=== PATIENT | male | born 1940 | race Caucasian/White ===

== ENCOUNTER 2017-01-04 11:33 | Observation (INO) | payer MEDICARE ==
[~2017-01-04] VITALS: Ht 188 cm; Wt 104.0 kg
[2017-01-04] VITALS (8 sets, daily range): BP systolic 112–129; BP diastolic 65–94; PULSE 71–79; RESP 18–22; O2SAT 93–98
[~2017-01-04 11:33] MED LIST: ASPI-973 PO; CHOL100043 PO; FUR20 PO; GABA600T2 PO; GLPZ5T PO; LEVO50TA6 PO; LIP40 PO; LISI-609 PO; METF1000 PO; METO25TA6 PO; NORT25CA PO; OXYC5TAB72 PO; TAMS0.4C98 PO; WARF10TA4 PO; WARF7.5T4 PO
--- NOTE | 2017-01-04 11:42 | ED.REPORT ---
HPI-Chest Pain 40 and Over Date of Service January 04, 2017 ED Provider: Dr. Cuba Pt is a 76 year old male with a hx of DMII, HTN, hyperlipidemia, cardiac disease , afib, previous ND and prostate cancer on Warfarin presenting to the ED complaining of malaise onset at 0400 when he woke up this morning. He reports that he missed his evening medications last night (Aspirin, Atorvastatin, Metoprolol, and Lantus shot), and complains of SOB, slight left sided chest tightness (which he describes as a twinge), anxiety, and indigestion today. Denies cough or fever. He reports that he took his morning medications today which include Metoprolol but he has not taken Aspirin. Nursing Notes Stated Complaint: HEART PROBLEMS Chief Complaint: Chest Pain Nursing Notes Reviewed: Yes Allergies: Coded Allergies: No Known Allergies (Verified , 01/04/17) Scheduled Aspirin (Aspirin) 81 Mg Tablet 81 MG PO HS Atorvastatin (Lipitor) 40 Mg Tablet 40 MG PO HS Cholecalciferol (Vitamin D3) (Vitamin D) 1,000 Unit Tablet 2,000 UNIT PO DAILY Furosemide (Furosemide) 20 Mg Tab 20 MG PO BID Gabapentin (Gabapentin) 600 Mg Tablet 1,200 MG PO TID Glimepiride (Glimepiride) 2 Mg Tablet 2 MG PO DAILYAC Insulin Glargine (Lantus U100 Solostar Insulin Pen) 100 Unit/1 Ml Insuln.pen 1 UNIT SUBQ HS Levothyroxine (Levothyroxine) 50 Mcg Tablet 50 MCG PO DAILY Lisinopril (Zestril) 5 Mg Tablet 10 MG PO DAILY Metformin (Glucophage) 1,000 Mg Tablet 1,000 MG PO BID Metoprolol Tartrate (Metoprolol Tartrate) 25 Mg Tablet 25 MG PO BID Nortriptyline (Nortriptyline) 25 Mg Capsule 25 MG PO HS Warfarin Sodium (Warfarin Sodium) 7.5 Mg Tablet 7.5 MG PO ,,,Fr,Sa,Gill Warfarin Sodium (Warfarin Sodium) 10 Mg Tablet 10 MG PO Mondays Scheduled PRN oxyCODONE (oxyCODONE) 5 Mg Tablet 5 MG PO Q4H PRN PRN For Pain 5-10 mg General Time Seen by MD: 11:41 Chief Complaint Chest pain Hx Obtained From: Patient Arrived By: Walk-in Sudden in Onset?: No Onset Occurred: 5 - 8 hours ago Symptom Duration: Since onset Location: : Chest left Quality: Painful Severity: Current: Mild Severity: Maximum: Mild Recent Healthcare: No recent doctor visit, No recent hospitalization Similar Sx Previous: No Past Medical History Past Medical History 1. 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 2. Hyperlipidemia on Zocor. 3. Hypertension. 4. Cervical lumbar surgeries in the past. 5. Prostate cancer with implanted seeds at times prior. 6. History of nephrolithiasis. 7. Cardiac disease s/p cardiac catheterization 8. Atrial fibrillation and ventricular tachycardia s/p cardioversion. 9. ND. Past Surgical History Cardiac catheterization carpal tunnel surgery Reports: Back/neck surgery Smoking History Former Smoker Social History Alcohol Use: "Social" Drug Use: Denies drug use Other Social History: Ambulatory Status Independent Review of Systems Constitutional: Reports: Malaise, Denies: Fever Respiratory: Reports: Shortness of breath, Denies: Non-productive cough Cardiovascular: Reports: Chest pain GI: Reports: Abdominal pain Complete sys rev & neg: except as marked. Physical Exam Initial Vital Signs Vital Signs (First) Date Time Temp Pulse Resp B/P Pulse Ox O2 Delivery O2 Flow Rate FiO2 01/04/17 11:35 36.2 79 18 129/78 98 Room Air Initial VS: Reviewed Head / Eyes: Atraumatic, Normocephalic, PERRL ENT: Conjunctiva normal Neck: Supple Extremities: No swelling Skin: Warm, Dry, No cyanosis Neurologic: Alert, Oriented, Nonfocal Psychiatric: Mood/affect normal, Behavior normal, Normal thought content General/Constitutional: Awake, Alert, Well appearing Respiratory / Chest: Breath sounds NL, Breath sounds = bilat, No respiratory distress, No rales, No rhonchi, No wheezing, No stridor, No chest tenderness Cardiovascular: Heart rate NL, Regular rhythm, Heart sounds NL, No gallop, No murmurs, No rubs Interpretation & Diagnostics Lab Results Interpretation Result Diagram: 01/04/17 1145 01/04/17 1145 Test 01/04/17 11:45 01/04/17 12:45 White Blood Count 6.8th/mm3 (3.8-10.1) Red Blood Count 3.61mil/mm3 (4.40-5.80) Hemoglobin 11.8g/dL (13.8-17.2) Hematocrit 35.5% (41.0-50.0) Mean Corpuscular Volume 98.3fL (81-100) Mean Corpuscular Hemoglobin 32.7pg (27.0-35.0) Mean Corpuscular Hemoglobin Concent 33.2% (32.0-37.0) Red Cell Distribution Width 14.1% (12.3-15.4) Platelet Count 136bil/L (150-400) Neutrophils (%) (Auto) 71.0% (40-74) Lymphocytes (%) (Auto) 20.1% (14-46) Monocytes (%) (Auto) 7.4% (4-12) Eosinophils (%) (Auto) 1.0% (0-5) Basophils (%) (Auto) 0.4% (0-3) Prothrombin Time 22.3sec (8.1-12.5) Prothromb Time International Ratio 2.05ratio Sodium Level 141mEq/L (134-144) Potassium Level 4.6mEq/L (3.5-5.2) Chloride Level 104mEq/L (97-108) Carbon Dioxide Level 21mmol/L (18-29) Blood Urea Nitrogen 32mg/dL (8-27) Creatinine 1.20mg/dL (0.76-1.27) Estimat Glomerular Filtration Rate 63mL/min (>59) Glucose Level 225mg/dL (60-99) Calcium Level 9.6mg/dL (8.5-10.1) Magnesium Level 2.0mg/dL (1.6-2.6) Total Bilirubin 0.7mg/dL (0.0-1.2) Aspartate Amino Transf (AST/SGOT) 20U/L (0-50) Alanine Aminotransferase (ALT/SGPT) 14U/L (0-44) Alkaline Phosphatase 72U/L (25-160) Total Protein 7.2g/dL (6.4-8.4) Albumin 4.1g/dL (3.4-5.0) Hold [place] Top Tube Received (Received) Urine Color Straw (YELLOW) Urine Appearance Clear (CLEAR,HAZY) Urine pH 5.0 (5.0-8.0) Urine Specific [place] <1.005 (1.003-1.035) Urine Protein Negativemg/dL (NEG,TRACE) Urine Glucose (UA) Negativemg/dL (NEGATIVE) Urine Ketones Negativemg/dL (NEGATIVE) Urine Occult Blood Negative (NEGATIVE) Urine Nitrite Negative (NEGATIVE) Urine Bilirubin Negative (NEGATIVE) Urine Urobilinogen Normalmg/dL (NORMAL) Urine Leukocyte Esterase Negative (NEGATIVE) Urine RBC 0-2/hpf (0-2) Urine WBC 0-5/hpf (0-5) Urine Epithelial Cells None/hpf (NONE-MOD) Urine Crystals None seen (NONE SEEN) Urine Bacteria None/hpf (NONE-FEW) Urine Hyaline Casts None/lpf (NONE) Urine Granular Casts None seen (NONE SEEN) Urine Waxy Casts None seen (NONE SEEN) Urine Red Blood Cell Casts None seen (NONE SEEN) Urine White Blood Cell Casts None seen (NONE SEEN) Urine Mucus None seen (None Seen) Urine Trichomonas None seen (NONE SEEN) Urine Yeast None (NONE SEEN) Urinalysis Comment None Urine Culture Reflexed Not indicated Hold Urine Received (Received) ECG Interpretation ECG Interpretation: Paced rhythm. Time: 11:42 Normal ECG Interpretation: Normal rate (75) X-Ray Chest Interpretation Chest Xray Interpretation: IMPRESSION: No acute cardiopulmonary disease process. Dictated by: Beena Navarro MD, PhD on 01/04/2017 at 11:59 View: Portable, 1 view Interpretation / Wet Read by: Interpret - Radiologist Re-Eval/Medical Decision Med Decision/Clinical Course 76 year old with known CAD and indeterminate troponin. ECG is unreadable due to paced rhythm. Pain free after NTG, given ASA. Will admit for obs/serial troponins Time of Eval: 12:03 Patient Status: Condition improved Re-Evaluation/Progress Note: Discussed plan for chest pain workup and probable admission. Time of Eval: 13:10 Patient Status: Condition improved Re-Evaluation/Progress Note: Discussed lab results and plan for admission. Pt understands and agrees. Consultation #1: Call Returned at: 11:57 Note: [employer]: No arrhythmias. Function of pacemaker and batteries fine. Consultation #2: Referral / Consult Name: Jitendra Tran MD Consulted With: Hospitalist Call Returned at: 13:20 Inside Polisher: Will see patient, Agrees with plan, Accepts admit Counseled Regarding: Diagnosis, Lab results, Need for follow-up, When/why to return to ED Discharge & Departure Disposition: ADMITTED TO HOSPITAL Discharge Condition All VS Reviewed: Yes Condition: Improved Referrals: Albaro Stratton MD (PCP) Scribe Attestation Portions of this note were transcribed by Vee Liu. I, Dr. Cuba personally performed the history, physical exam and medical decision-making; I reviewed and confirmed the accuracy of the information in the transcribed note. Signed by : Mario Mireles, 01/04/17 at 1324. copies to: Albaro Stratton MD, Donald L MD January 04, 2017 11:42 VEE LIU January 04, 2017 11:46
--- NOTE | 2017-01-04 12:01 | DRSVH ---
PROCEDURE: X-RAY CHEST ONE VIEW, PORTABLE ([id number]) INDICATIONS: chest pain TECHNIQUE: One view of the chest was acquired. COMPARISON: [facility], CR, XR CHEST 1VW (PORTABLE), 06/29/2016, 7:49. FINDINGS: Surgical changes and devices: Status post placement cardiac pacer. Lungs and pleura: No pleural effusions or pneumothorax. Lungs are clear. Mediastinum: Mediastinal contours appear normal. Heart size is normal. Bones and chest wall: No suspicious bony lesions. Overlying soft tissues appear unremarkable. IMPRESSION: No acute cardiopulmonary disease process. Dictated by: Beena Navarro MD, PhD on 01/04/2017 at 11:59 Approved by: Beena Navarro MD, PhD on 01/04/2017 at 12:00
[2017-01-04 12:24] LABS: INR 2.05 ratio
[2017-01-04 12:27] LABS: BASOPHILS % (AUTO) 0.4 % (0-3); MONOCYTES % (AUTO) 7.4 % (4-12); Mean Corpuscular Hemoglobin 32.7 pg (27.0-35.0); Mean Corpuscular Volume 98.3 fL (81-100); Platelet Count 136 bil/L (150-400)
[2017-01-04 12:32] LABS: TROPONIN T 0.016 ug/L (0.0-0.011)
[2017-01-04] MEDS ORDERED: Nitroglycerin 2% 1 Gm Ointment TOPICAL SCH (13:15)
[2017-01-04] MEDS ORDERED: Ondansetron 2 mg/mL 2 mL Inj IVPUSH PRN ×2 (13:25→15:30)
[2017-01-04] MEDS ORDERED: Alum-Mag Hydrox-Simeth 30 mL Suspension PO PRN ×2 (13:25→15:30)
[2017-01-04 13:46] LABS: APPEARANCE,URINE CLEAR (CLEAR,HAZY); COLOR,URINE STRAW (YELLOW); OCCULT BLOOD,URINE NEGATIVE (NEGATIVE); UROBILINOGEN,URINE NORMAL (NORMAL)
[2017-01-04] MEDS ORDERED: INSU100I13 SUBQ (14:11)
[2017-01-04] MEDS ORDERED: GLIM2TAB2 PO (14:11)
[2017-01-04] MEDS ORDERED: 0.9% Sodium Chloride 1,000 ML IV SCH (15:26)
[2017-01-04] MEDS ORDERED: Polyethylene Glycol (PEG) 17 Gm Powder PO PRN (15:30)
[2017-01-04] MEDS ORDERED: Senna-Docusate 8.6-50 mg Tablet PO PRN (15:30)
[2017-01-04] MEDS ORDERED: Atropine 1 mg/10 mL (Code) Syringe IVPUSH PRN (15:30)
[2017-01-04] MEDS ORDERED: Glucose 40% Oral Gel 15 Gm Tube PO PRN (15:35)
[2017-01-04] MEDS ORDERED: Dextrose 10% 250 ML IV PRN (15:35)
[2017-01-04] MEDS: Sodium Chloride LOK Flush 10 mL Syringe IVFLUSH SCH ×2 (16:00→21:41)
[2017-01-04 16:47] LABS: TROPONIN T 0.014 ug/L (0.0-0.011)
[2017-01-04] MEDS: Heparin 5,000 Unit/mL Inj SUBQ SCH (16:54)
[2017-01-04 16:57] LABS: Creatine Kinase 131 U/L (21-232)
[2017-01-04] MEDS: Insulin LISPRO 300 Unit/3 mL Inj SUBQ SCH ×2 (17:25→21:41)
--- NOTE | 2017-01-04 17:57 | NUR ---
Transfer/Refused Coumadin Pt. was transferred from the ED to room [facility]. Pt. arrived at ~1400 with no c/o pain, SOB, or chest pain. Pt. ambulated from the ED bed to the bed in room 2001 [facility] with SBA, steady/strong gait observed. Pt. this afternoon refused his Coumadin dose scheduled of 7.5mg because he states " I took my Coumadin dose this morning prior to coming into the hospital and I will not take it this afternoon because I don't want to overdose on it". Addendum: 01/04/17 at 1802 by CHRISTINA AUGUSTINE RN Pt. on tele and Vpaced 100% per tele
--- NOTE | 2017-01-04 18:14 | PCM.HPMED ---
Subjective Date of Service January 04, 2017 Primary Provider: Admitting Physician: Jitendra Tran MD Primary Care Physician: Albaro Stratton MD Attending Physician: Jitendra Tran MD Chief Complaint: Chest pain History of Present Illness: PCP is Dr. Stratton J2Ee Architect is Dr. Galindo Mr. Alvares is a 76-year-old obese gentleman with history of CAD, pacemaker, diabetes type II, A. fib on warfarin who presents with 2 hours of chest pain/ indigestion which started today at 4 AM and was not relieved by Pepto-Bismol. Mr. Hays reports that he had a change in routine last night at which day dinner later, and he subsequently forgot to take his evening medications. He reports awakening this morning at approximately 4 AM with some indigestion/ chest discomfort on the left which did not radiate, and was not associated with nausea, sweating, lightheadedness or dizziness. He reports that he tried Pepto- Bismol, but this was insufficient to relieve his pain. He subsequently presented at the ER for further evaluation. In the ER he received a full dose aspirin and a dose of nitroglycerin. EKG demonstrated a paced rhythm and troponins were slightly positive, and therefore decision was made to admit for further observation and evaluation. Patient is admitted under observation status with expected length of stay less than 2 midnights due to severity of presenting symptoms, risk of adverse event, and complexity of treatment plan. Review of Systems: Comprehensive review of systems conducted and was negative except for the pertinent positives listed in history of present illness above. Allergies Coded Allergies: No Known Allergies (Verified , 01/04/17) Home Medications Patient reports taking the following: Baby aspirin daily 40 mg atorvastatin Vitamin D Furosemide 20 mg twice a day (patient actually reports taking 10 mg twice a day because he was up all night urinating) High-dose gabapentin 3 times a day Glimepiride 2 mg Insulin glargine (he reports taking 8 units at night, but notes that he took 8 units this morning because he missed his dose last night) 50 g levothyroxine Lisinopril 10 mg Metformin 1 g twice a day Metoprolol tartrate 25 twice a day Her trip to lean 25 at bedtime Oxycodone 5 mg every 4 hours as needed for pain Warfarin 7.5 mg on , , , S, SA, DAY Warfarin 10 mg on Mondays PMH 1. Type 2 diabetes (reports starting insulin, long-acting approximately 2 or 3 months ago) with neuropathy on gabapentin. * Reports A1c as high as 9 2. Hyperlipidemia on Zocor. 3. Hypertension. 4. Cervical and lumbar surgeries in the past.-Patient actually reports that he has a lumbar surgery upcoming over the next month or so 5. Prostate cancer with implanted seeds at times prior. 6. History of nephrolithiasis. 7. Cardiac disease s/p [place] with cardiac catheterization and report of stent 20yrs ago * status post Xience 2.5 x 28 stent deployed to the mid RCA for chronic total occlusion September 2009. 8. Atrial fibrillation and ventricular tachycardia s/p cardioversion. * Status post pacemaker placement 9. Hypothyroidism on replacement 10. Systolic congestive heart failure * Echocardiogram 06/2016 shows an EF of 35-40% * Mild MR * Pulmonary hypertension with an estimated RVSP of 48 Past Surgical History CAD s/p stent 20yrs ago carpal tunnel surgery 06/25/2016 Reports: Backx3/neckx1 surgery s/p right total hip arthroplasty Family History Father of 50 with premature atherosclerosis. History of coronary artery disease, multiple family members. Multiple siblings with [place] and bypass surgery. Social History Hx Alcohol Use: Yes (one beer, or glass of wine, or martini daily) Hx Substance Use: No Hx Tobacco Use: Yes (Quit at age 27) Smoking Status: Former Smoker Living Arrangement: with Family Additional Information This with his and meanwhile and. They have several dogs. 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 Exam Vital Signs Vital Sign - Last Date Time Temp Pulse Resp B/P Pulse Ox O2 Delivery O2 Flow Rate FiO2 01/04/17 16:01 36.6 75 22 129/76 95 Room Air Exam General: Alert, Oriented X3, Cooperative, No Acute Distress Head: Normocephalic, atraumatic. External ears normal. Eyes: PERRLA, EOMI. Anicteric sclerae. Mouth: Mouth Normal, Mucous Membranes Moist/[place] Neck: Neck supple with full range of motion. No Thyromegaly. Chest & Lungs: Clear to auscultation bilaterally with no crackles, wheezes, or rhonchi. Cardiovascular: Regular Rate/Rhythm, Normal S1, Normal S2, No Murmurs/Rubs/ Gallops Abdomen: Minimally tender in the left upper and epigastric quadrants, Non- distended, No masses, Normoactive bowel tones, Soft Musculoskeletal: Normal Range of Motion Extremities: No cyanosis/clubbing/edema bilat Neurological: Grossly Neurologically Intact, Cranial Nerves 2-12 Intact, Normal Speech Psych: Normal mood and affect. Thought process and content intact. Lab and Diagnostics Labs Troponins unremarkable. A1c 6.2. INR 2.05 UA unremarkable Result Diagram: 01/04/17 1145 01/04/17 1145 X-Rays, CTs and MRIs 01/04: Chest x-ray unremarkable 12-lead ECG 01/04: Paced rhythm. Assessment & Plan Mr. Alvares is a 76-year-old obese gentleman with history of CAD, pacemaker, diabetes type II, A. fib on warfarin who presents with 2 hours of chest pain/ indigestion which started today at 4 AM and was not relieved by Pepto-Bismol. Hospital day 1 Atypical chest pain in diabetic. Present on admission -Unremarkable troponins all but rule out active ACS. Cannot rule out exertional angina in this patient with complicated cardiac history. No other indication that indigestion is secondary to pancreatitis, nephrolithiasis, gastritis, aneurysm. However, these do remain on the differential. -Monitor under observation given his complicated history -Repeat echocardiogram -Stress test with a backup Araceli scan tomorrow -Monitor in the [facility]CC -Continue baby aspirin, statin, beta real (hold tomorrow morning in anticipation for stress test) -Nitrostat available Hyperglycemia in diabetic. Present on admission -Potentially elevated secondary to the chest pain she has been experiencing. However, highly suspicious for medications/diet noncompliance given his A1c of 9.5 on 12/15/16. -Cover with correctional insulin, and anticipate administering basal insulin at half home dose -Old home metformin (given his creatinine of 1.2, and anticipating the possibility of ongoing studies tomorrow) -Hold glimepiride Normocytic anemia, suspect some degree chronic. Present on admission -Unclear etiology at this point, though suspect some degree of chronic disease contributing to his anemia -Check iron studies, and B12 folate Thrombocytopenia, acute. Present on admission -Some consideration could be given to connection with his alcohol use. Given the location of his pain in the abdomen, some thought could be given to possibility of splenic involvement. -Checking B12 and folate as noted above Chronic conditions: Hyperlipidemia on Zocor. Hypertension. Cervical and lumbar surgeries in the past.-Patient actually reports that he has a lumbar surgery upcoming over the next month or so Prostate cancer with implanted seeds at times prior. History of nephrolithiasis. Cardiac disease s/p [place] with cardiac catheterization and report of stent 20yrs ago * status post Xience 2.5 x 28 stent deployed to the mid RCA for chronic total occlusion September 2009. Atrial fibrillation and ventricular tachycardia s/p cardioversion. * Status post pacemaker placement Hypothyroidism on replacement Systolic congestive heart failure * Echocardiogram 06/2016 shows an EF of 35-40% * Mild MR * Pulmonary hypertension with an estimated RVSP of 48 PRN MEDICATIONS - Acetaminophen as needed for mild pain/fever/headache - Bowel regimen as needed - Antiemetic as needed Patient is admitted under observation status with expected length of stay less than 2 midnights due to severity of presenting symptoms, risk of adverse event, and complexity of treatment plan. Pain Evaluation: Adequate Pain Control GI Prophylaxis: Not indicated VTE Prophylaxis: Sub-Q Heparin (Unfractionated) Resuscitation Status: CPR: Attempt Resuscitation Attending Statement The patient was seen and examined together with Dr. Astorga on 01/04/2017 and I agree with the history, exam and plan as outlined in the note above. . copies to: Albaro Stratton MD, Collin T DO January 04, 2017 18:14 Jitendra Tran MD January 05, 2017 14:29
--- NOTE | 2017-01-04 20:47 | NUR ---
BLANCA explained and signed. Copy of RIOS given to pt.
[2017-01-05] MEDS: Heparin 5,000 Unit/mL Inj SUBQ SCH (00:51)
[2017-01-05 02:40] LABS: Mean Corpuscular Hemoglobin 32.7 pg (27.0-35.0); Mean Corpuscular Volume 98.3 fL (81-100)
[2017-01-05 02:41] LABS: BASOPHILS % (AUTO) 0.4 % (0-3); EOSINOPHILS % (AUTO) 1.5 % (0-5); MONOCYTES % (AUTO) 10.9 % (4-12); NEUTROPHILS % (AUTO) 61.1 % (40-74); Platelet Count 123 bil/L (150-400)
[2017-01-05 02:49] LABS: INR 2.1 ratio
[2017-01-05 03:41] VITALS: BP 121/75; PULSE 75; RESP 20; O2SAT 95
--- NOTE | 2017-01-05 07:37 | NUR ---
GI Discomfort Pt concerned w/ epigastric and left abdominal discomfort as he had this prior to coming in. Pt given maalox. Pt denied chest pain but rather indigestion not rated on pain scale as it was more discomfort. pt had difficulty describing. EKG done and dry pan charger reviewed w/ this nurse. No significant changes seen from previous. Vitals stable. notified and stated to give nitro which was given x2. Pt stated symptom improvement w/ maalox but could not notice changes w/ nitro. aware and had also ordered troponin which trended down. No new orders given after that. Pt soon fell asleep and stated he would inform nursing of changes. When woken for next vitals pt denied any pain, instructed to inform nursing if this were to change.
[2017-01-05] MEDS ORDERED: 0.9% Sodium Chloride 500 ML IV ONE (08:30)
--- NOTE | 2017-01-05 08:57 | PCM.DIMED ---
Milton Hughes Gely 01/05/17 0853: Discharge Instructions Date of Service January 05, 2017 Dates of Hospitalization January 04, 2017 at 13:23 Discharge Diagnosis Discharge Diagnosis Your chest pain/discomfort with indigestion was atypical (meaning it was not typical chest pain that we usually associate with heart problems), and that, in the setting of your known heart history and diabetes, was concerning. Medication Instructions Continue your home medications as before. Test Results Laboratory Tests 72 Hours Test 01/04/17 11:45 01/04/17 12:45 01/04/17 16:12 01/04/17 20:02 White Blood Count 6.8th/mm3 (3.8-10.1) Red Blood Count 3.61mil/mm3 (4.40-5.80) Hemoglobin 11.8g/dL (13.8-17.2) Hematocrit 35.5% (41.0-50.0) Mean Corpuscular Volume 98.3fL (81-100) Mean Corpuscular Hemoglobin 32.7pg (27.0-35.0) Mean Corpuscular Hemoglobin Concent 33.2% (32.0-37.0) Red Cell Distribution Width 14.1% (12.3-15.4) Platelet Count 136bil/L (150-400) Neutrophils (%) (Auto) 71.0% (40-74) Lymphocytes (%) (Auto) 20.1% (14-46) Monocytes (%) (Auto) 7.4% (4-12) Eosinophils (%) (Auto) 1.0% (0-5) Basophils (%) (Auto) 0.4% (0-3) Prothrombin Time 22.3sec (8.1-12.5) Prothromb Time International Ratio 2.05ratio Sodium Level 141mEq/L (134-144) Potassium Level 4.6mEq/L (3.5-5.2) Chloride Level 104mEq/L (97-108) Carbon Dioxide Level 21mmol/L (18-29) Blood Urea Nitrogen 32mg/dL (8-27) Creatinine 1.20mg/dL (0.76-1.27) Estimat Glomerular Filtration Rate 63mL/min (>59) Glucose Level 225mg/dL (60-99) Calcium Level 9.6mg/dL (8.5-10.1) Magnesium Level 2.0mg/dL (1.6-2.6) Total Bilirubin 0.7mg/dL (0.0-1.2) Aspartate Amino Transf (AST/SGOT) 20U/L (0-50) Alanine Aminotransferase (ALT/SGPT) 14U/L (0-44) Alkaline Phosphatase 72U/L (25-160) Troponin T 0.016ug/L (0.0-0.011) 0.014ug/L (0.0-0.011) 0.012ug/L (0.0-0.011) Total Protein 7.2g/dL (6.4-8.4) Albumin 4.1g/dL (3.4-5.0) Hold [place] Top Tube Received (Received) Urine Color Straw (YELLOW) Urine Appearance Clear (CLEAR,HAZY) Urine pH 5.0 (5.0-8.0) Urine Specific [place] <1.005 (1.003-1.035) Urine Protein Negativemg/dL (NEG,TRACE) Urine Glucose (UA) Negativemg/dL (NEGATIVE) Urine Ketones Negativemg/dL (NEGATIVE) Urine Occult Blood Negative (NEGATIVE) Urine Nitrite Negative (NEGATIVE) Urine Bilirubin Negative (NEGATIVE) Urine Urobilinogen Normalmg/dL (NORMAL) Urine Leukocyte Esterase Negative (NEGATIVE) Urine RBC 0-2/hpf (0-2) Urine WBC 0-5/hpf (0-5) Urine Epithelial Cells None/hpf (NONE-MOD) Urine Crystals None seen (NONE SEEN) Urine Bacteria None/hpf (NONE-FEW) Urine Hyaline Casts None/lpf (NONE) Urine Granular Casts None seen (NONE SEEN) Urine Waxy Casts None seen (NONE SEEN) Urine Red Blood Cell Casts None seen (NONE SEEN) Urine White Blood Cell Casts None seen (NONE SEEN) Urine Mucus None seen (None Seen) Urine Trichomonas None seen (NONE SEEN) Urine Yeast None (NONE SEEN) Urinalysis Comment None Urine Culture Reflexed Not indicated Hold Urine Received (Received) Total Creatine Kinase 131U/L (21-232) Creatine Kinase MB 3.7ng/mL (0.0-10.4) Creatine Kinase MB % % (0.0-5.0) Test 01/04/17 21:07 01/05/17 02:15 Hold [place] Top Tube Received (Received) White Blood Count 5.3th/mm3 (3.8-10.1) Red Blood Count 3.49mil/mm3 (4.40-5.80) Hemoglobin 11.4g/dL (13.8-17.2) Hematocrit 34.3% (41.0-50.0) Mean Corpuscular Volume 98.3fL (81-100) Mean Corpuscular Hemoglobin 32.7pg (27.0-35.0) Mean Corpuscular Hemoglobin Concent 33.2% (32.0-37.0) Red Cell Distribution Width 13.8% (12.3-15.4) Platelet Count 123bil/L (150-400) Neutrophils (%) (Auto) 61.1% (40-74) Lymphocytes (%) (Auto) 25.5% (14-46) Monocytes (%) (Auto) 10.9% (4-12) Eosinophils (%) (Auto) 1.5% (0-5) Basophils (%) (Auto) 0.4% (0-3) Prothrombin Time 22.8sec (8.1-12.5) Prothromb Time International Ratio 2.10ratio Sodium Level 142mEq/L (134-144) Potassium Level 4.4mEq/L (3.5-5.2) Chloride Level 105mEq/L (97-108) Carbon Dioxide Level 25mmol/L (18-29) Blood Urea Nitrogen 33mg/dL (8-27) Creatinine 1.29mg/dL (0.76-1.27) Estimat Glomerular Filtration Rate 58mL/min (>59) Glucose Level 122mg/dL (60-99) Calcium Level 9.4mg/dL (8.5-10.1) Diet Heart Healthy, Diabetic Activity Other (I recommend that you limit exertion/activities until seen by your rug touch up painter today (they will give you further instructions regarding activity). ) Call your provider Shortness of breath, Chest pain, Other (If you experience any new or concerning symptoms, please call your doctor, or return to the hospital.) Patient Instructions After discussion today regarding our recommendations for diagnostic workup, and the conversation you had with Dr. Galindo, it is appropriate to discharge home with the understanding that you will see your rug touch up painter today (with the intent of pursuing further testing with them within 1-2 days). Follow-up plan Follow up with Dr. Stratton within 2-3 weeks to discuss your hospitalization. Follow up with Dr. Galindo, your rug touch up painter, today to discuss your hospitalization , and any further testing/medication changes he recommends. Olga Buchanan MD 01/06/17 1614: Discharge Instructions Attending's Statement The patient was seen and examined together with Dr. Hughes on 01-05-17 and I agree with the history, exam and plan as outlined in the note above. Milton Hughes DO January 05, 2017 08:53 Olga Buchanan MD January 06, 2017 16:14
--- NOTE | 2017-01-05 09:09 | PCM.DC.MED ---
Discharge Summary Date of Service January 05, 2017 Dates of Hospitalization Date of Hospital Admission January 04, 2017 at 13:23 Date of Discharge: January 05, 2017 Providers: Admitting Physician: Jitendra Tran MD Primary Care Physician: Albaro Stratton MD Attending Physician: Jitendra Tran MD Diagnosis at Time of Discharge Diagnosis at Time of Discharge Atypical chest pain CAD with h/o IL s/p stent placement (Xience 2.5 x 28 stent deployed to the mid RCA for chronic total occlusion September 2009.) Afib s/p cardioversion (unsuccessful) s/p pacemaker placement DM 2 on insulin with A1c 9.5% Normocytic anemia, suspect some degree chronic. Thrombocytopenia, acute. Hyperlipidemia on Zocor. Hypertension. Cervical and lumbar surgeries in the past.-Patient actually reports that he has a lumbar surgery upcoming over the next month or so Prostate cancer with implanted seeds at times prior. History of nephrolithiasis. Hypothyroidism on replacement Systolic congestive heart failure Echocardiogram 06/2016 shows an EF of 35-40% Mild MR Pulmonary hypertension with an estimated RVSP of 48 Consultations None. Procedures XRay, CTs & MRIs 01/04: Chest x-ray unremarkable ECG 12 Lead 01/04: Paced rhythm. Brief History The following is taken from my (Dr. Stockton) H&P dated 01/04/17: PCP is Dr. Stratton Heating And Air Conditioning Mechanic is Dr. Galindo Mr. Alvares is a 76-year-old obese gentleman with history of CAD, pacemaker, diabetes type II, A. fib on warfarin who presents with 2 hours of chest pain/ indigestion which started today at 4 AM and was not relieved by Pepto-Bismol. Mr. Hays reports that he had a change in routine last night at which day dinner later, and he subsequently forgot to take his evening medications. He reports awakening this morning at approximately 4 AM with some indigestion/ chest discomfort on the left which did not radiate, and was not associated with nausea, sweating, lightheadedness or dizziness. He reports that he tried Pepto- Bismol, but this was insufficient to relieve his pain. He subsequently presented at the ER for further evaluation. In the ER he received a full dose aspirin and a dose of nitroglycerin. EKG demonstrated a paced rhythm and troponins were slightly positive, and therefore decision was made to admit for further observation and evaluation. Patient is admitted under observation status with expected length of stay less than 2 midnights due to severity of presenting symptoms, risk of adverse event, and complexity of treatment plan. Hospital Course Mr. Alvares is a 76-year-old obese gentleman with history of CAD, pacemaker, diabetes type II, A. fib on warfarin who presents with 2 hours of chest pain/ indigestion which started today at 4 AM and was not relieved by Pepto-Bismol. His atypical chest pain was concerning in setting of DM and his cardiac history. However, troponins have been stable (consistent with previous admission ) and not trending. In context of his reported missed medication, and his course /improvement here, he discussed with his residential program director the possibility of pursuing diagnostic workup (we had ordered stress testing and echo) in the outpatient setting. At this time, it is reasonable to proceed with close follow up with cardiology (today or tomorrow) for said workup. Held his Metformin and Glimepiride, but patient will continue all home medications at time of discharge. Anemia and thrombocytopenia noted on blood work. Unable to obtain requisite studies to establish nutrient deficiency. Consider pursuing these studies in outpatient setting. Otherwise, chronic conditions were stable throughout, and did not require further treatment or evaluation. At time of discharge, patient was pain free (except for chronic low back discomfort), and described only a mild headache for which he declined therapy. He is eating and drinking without difficulty; voiding and stooling without difficulty; ambulating without assistance. Appropriate for discharge. Exam Vital Signs (Last) Date Time Temp Pulse Resp B/P Pulse Ox O2 Delivery O2 Flow Rate FiO2 01/05/17 03:41 36.5 75 20 121/75 95 Nasal Cannula 2.00 Exam PE on day of discharge: General: Alert, Oriented X3, Cooperative, No Acute Distress Head: Normocephalic, atraumatic. External ears normal. Eyes: PERRLA, EOMI. Anicteric sclerae. Mouth: Mouth Normal, Mucous Membranes Moist/[place] Neck: Neck supple with full range of motion. No Thyromegaly. Chest & Lungs: Clear to auscultation bilaterally with no crackles, wheezes, or rhonchi. Cardiovascular: Regular Rate/Rhythm, Normal S1, Normal S2, No Murmurs/Rubs/ Gallops Abdomen: Non-tender, Non-distended, No masses, Normoactive bowel tones, Soft Musculoskeletal: Normal Range of Motion Extremities: No cyanosis/clubbing/edema bilat Neurological: Grossly Neurologically Intact, Cranial Nerves 2-12 Intact, Normal Speech Psych: Normal mood and affect. Thought process and content intact. Test 01/04/17 11:45 01/04/17 12:45 01/04/17 16:12 01/04/17 20:02 Magnesium Level 2.0mg/dL (1.6-2.6) Total Bilirubin 0.7mg/dL (0.0-1.2) Aspartate Amino Transf (AST/SGOT) 20U/L (0-50) Alanine Aminotransferase (ALT/SGPT) 14U/L (0-44) Alkaline Phosphatase 72U/L (25-160) Total Protein 7.2g/dL (6.4-8.4) Albumin 4.1g/dL (3.4-5.0) Hold [place] Top Tube Received (Received) Urine Color Straw (YELLOW) Urine Appearance Clear (CLEAR,HAZY) Urine pH 5.0 (5.0-8.0) Urine Specific [place] <1.005 (1.003-1.035) Urine Protein Negativemg/dL (NEG,TRACE) Urine Glucose (UA) Negativemg/dL (NEGATIVE) Urine Ketones Negativemg/dL (NEGATIVE) Urine Occult Blood Negative (NEGATIVE) Urine Nitrite Negative (NEGATIVE) Urine Bilirubin Negative (NEGATIVE) Urine Urobilinogen Normalmg/dL (NORMAL) Urine Leukocyte Esterase Negative (NEGATIVE) Urine RBC 0-2/hpf (0-2) Urine WBC 0-5/hpf (0-5) Urine Epithelial Cells None/hpf (NONE-MOD) Urine Crystals None seen (NONE SEEN) Urine Bacteria None/hpf (NONE-FEW) Urine Hyaline Casts None/lpf (NONE) Urine Granular Casts None seen (NONE SEEN) Urine Waxy Casts None seen (NONE SEEN) Urine Red Blood Cell Casts None seen (NONE SEEN) Urine White Blood Cell Casts None seen (NONE SEEN) Urine Mucus None seen (None Seen) Urine Trichomonas None seen (NONE SEEN) Urine Yeast None (NONE SEEN) Urinalysis Comment None Urine Culture Reflexed Not indicated Hold Urine Received (Received) Total Creatine Kinase 131U/L (21-232) Creatine Kinase MB 3.7ng/mL (0.0-10.4) Creatine Kinase MB % % (0.0-5.0) Troponin T 0.012ug/L (0.0-0.011) Test 01/04/17 21:07 01/05/17 02:15 Hold [place] Top Tube Received (Received) White Blood Count 5.3th/mm3 (3.8-10.1) Red Blood Count 3.49mil/mm3 (4.40-5.80) Hemoglobin 11.4g/dL (13.8-17.2) Hematocrit 34.3% (41.0-50.0) Mean Corpuscular Volume 98.3fL (81-100) Mean Corpuscular Hemoglobin 32.7pg (27.0-35.0) Mean Corpuscular Hemoglobin Concent 33.2% (32.0-37.0) Red Cell Distribution Width 13.8% (12.3-15.4) Platelet Count 123bil/L (150-400) Neutrophils (%) (Auto) 61.1% (40-74) Lymphocytes (%) (Auto) 25.5% (14-46) Monocytes (%) (Auto) 10.9% (4-12) Eosinophils (%) (Auto) 1.5% (0-5) Basophils (%) (Auto) 0.4% (0-3) Prothrombin Time 22.8sec (8.1-12.5) Prothromb Time International Ratio 2.10ratio Sodium Level 142mEq/L (134-144) Potassium Level 4.4mEq/L (3.5-5.2) Chloride Level 105mEq/L (97-108) Carbon Dioxide Level 25mmol/L (18-29) Blood Urea Nitrogen 33mg/dL (8-27) Creatinine 1.29mg/dL (0.76-1.27) Estimat Glomerular Filtration Rate 58mL/min (>59) Glucose Level 122mg/dL (60-99) Calcium Level 9.4mg/dL (8.5-10.1) Discharge Medications Discharge Medications Aspirin (Aspirin) 81 Mg Tablet 81 MG PO HS (Reported) Atorvastatin (Lipitor) 40 Mg Tablet 40 MG PO HS (Reported) Cholecalciferol (Vitamin D3) (Vitamin D) 1,000 Unit Tablet 2,000 UNIT PO DAILY ( Reported) Furosemide (Furosemide) 20 Mg Tab 20 MG PO BID Prescribed by: TAYLER GUADARRAMA MD Gabapentin (Gabapentin) 600 Mg Tablet 1,200 MG PO TID (Reported) Glimepiride (Glimepiride) 2 Mg Tablet 2 MG PO DAILYAC (Reported) Insulin Glargine (Lantus U100 Solostar Insulin Pen) 100 Unit/1 Ml Insuln.pen 1 UNIT SUBQ HS (Reported) Levothyroxine (Levothyroxine) 50 Mcg Tablet 50 MCG PO DAILY (Reported) Lisinopril (Zestril) 5 Mg Tablet 10 MG PO DAILY Prescribed by: TAYLER GUADARRAMA MD Metformin (Glucophage) 1,000 Mg Tablet 1,000 MG PO BID (Reported) Metoprolol Tartrate (Metoprolol Tartrate) 25 Mg Tablet 25 MG PO BID (Reported) Warfarin Sodium (Warfarin Sodium) 7.5 Mg Tablet 7.5 MG PO ,,,,Sa, ( Reported) Warfarin Sodium (Warfarin Sodium) 10 Mg Tablet 10 MG PO Mondays (Reported) As needed oxyCODONE (oxyCODONE) 5 Mg Tablet 5 MG PO Q4H PRN PRN For Pain (Reported) 5-10 mg Additional med instructions Continue your home medications as before. Followup Plan Disposition: Home Follow-up plan Follow up with Dr. Stratton within 2-3 weeks to discuss your hospitalization. Follow up with Dr. Galindo, your residential program director, today to discuss your hospitalization , and any further testing/medication changes he recommends. Discharge Diet: Heart Healthy, Diabetic Discharge Activity: Other (I recommend that you limit exertion/activities until seen by your residential program director today (they will give you further instructions regarding activity).) Patient Instructions After discussion today regarding our recommendations for diagnostic workup, and the conversation you had with Dr. Galindo, it is appropriate to discharge home with the understanding that you will see your residential program director today (with the intent of pursuing further testing with them within 1-2 days). Attending Statement The patient was seen and examined together with Dr. Hughes on 01-05-17 and I agree with the history, exam and plan as outlined in the note above. copies to: Albaro Stratton MD; Nolan Galindo MD, Collin T DO January 05, 2017 09:09 Olga Buchanan MD January 06, 2017 16:15
--- NOTE | 2017-01-05 09:30 | NUR ---
Discharge Pt discharged to home with transportation by . Pt was observation for cardiac pain. Pt wishes to be discharged from hospital and is following up with his manager stylist in [place] today. Pt to take his own morning medications after discharge. Pt's IV dc'd intact, telemetry was removed and tech notified. Pt's discharge paperwork with discharge and follow up instructions were reviewed. All questions were answered and Pt voiced understanding. Pt's belongings were gathered as well as his prescription medications, for transport with pt. Pt was escorted off unit to his personal vehicle.
--- NOTE | 2017-01-05 10:31 | NUR ---
Social Work Note - Screening Note: D/A: EMR reviewed. The Pt is a 76 y/o male that was admitted under observation status for chest pain resolved. Readmission Risk Score is 2. The Pt's PCP is MD Albaro Stratton and his insurance is [employer]. [place] unable to see Pt prior to his discharge. The Pt lives independently at home on [address] with his family. Advanced Directive request noted in EMR by Nursing. The Pt was noted as being independent and ambulating in his room. P: Pt medically stable to be released from the hospital and has been discharged today, [place] unable to see Pt prior to his discharge. Pt discharged home with family providing POV transportation. Pt to follow up with his Pipe Threader today and with his PCP within 2-3 weeks, as per discharge note. WILEY Avila [employer] Counter WILEY Davis
== END 2017-01-05 10:00 | disposition home or self-care (01) ==
LOC: SED 11:33 → PCC 13:23
PROVIDERS: ADMIT Internal Medicine; ATTEND Internal Medicine
DX: R07.89 Other chest pain (principal); I25.10 Atherosclerotic heart disease of native coronary artery without angina pectoris; I25.2 Old myocardial infarction; E11.9 Type 2 diabetes mellitus without complications; I48.91 Unspecified atrial fibrillation; I47.2 Ventricular tachycardia; D64.9 Anemia, unspecified; D69.6 Thrombocytopenia, unspecified; E78.5 Hyperlipidemia, unspecified; I11.0 Hypertensive heart disease with heart failure; Z85.46 Personal history of malignant neoplasm of prostate; E03.9 Hypothyroidism, unspecified; I50.20 Unspecified systolic (congestive) heart failure; E66.9 Obesity, unspecified; Z95.0 Presence of cardiac pacemaker; Z95.5 Presence of coronary angioplasty implant and graft; Z87.891 Personal history of nicotine dependence; Z79.4 Long term (current) use of insulin; Z79.84 Long term (current) use of oral hypoglycemic drugs; Z79.01 Long term (current) use of anticoagulants; Z79.82 Long term (current) use of aspirin
CPT/HCPCS: 36415; 71010; 80048; 80053; 81000; 82550; 82553; 83735; 84484; 85025; 85610; 93005; 99285; G0378; J1644; J1815

== ENCOUNTER 2017-02-20 13:27 | Emergency (ER) | payer MEDICARE ==
[~2017-02-20] VITALS: Ht 188 cm; Wt 104.5 kg
[~2017-02-20 13:27] MED LIST changes: +GLIM2TAB2 PO; -GLPZ5T PO; +INSU100I13 SUBQ; -NORT25CA PO; -TAMS0.4C98 PO
[2017-02-20 13:34] VITALS: BP 136/85; RESP 15; O2SAT 99
--- NOTE | 2017-02-20 15:06 | ED.REPORT ---
HPI-General Illness Date of Service Feb 20, 2017 ED Provider: MarjorieDarrion Nahid 76 y/o male on Warfarin with a hx of DM Type II, HTN, hyperlipidemia, cardiac disease, A-fib (has a pacemaker) and previous AL presents to the ED complaining of epistaxis for the last 4 hours.The pt was at a car dealership when it suddenly began. He has a hx of occasional nosebleeds that typically stop quickly but today's sx concerned the pt as he bled significantly more and it lasted longer. He has a Kleenex stuffed in his nose and reports decreased bleeding in the last couple of hours. His INR has been steady at about 2.6. The pt denies any other sx including SOB, chest pain and lightheadedness. Nursing Notes Stated Complaint: BLOODY NOSE Chief Complaint: ENT & Mouth Nursing Notes Reviewed: Yes Allergies: Coded Allergies: No Known Allergies (Verified , 02/20/17) Scheduled Aspirin (Aspirin) 81 Mg Tablet 81 MG PO HS Atorvastatin (Lipitor) 40 Mg Tablet 40 MG PO HS Cholecalciferol (Vitamin D3) (Vitamin D) 1,000 Unit Tablet 2,000 UNIT PO DAILY Furosemide (Furosemide) 20 Mg Tab 20 MG PO BID Gabapentin (Gabapentin) 600 Mg Tablet 1,200 MG PO TID Glimepiride (Glimepiride) 2 Mg Tablet 2 MG PO DAILYAC Insulin Glargine (Lantus U100 Solostar Insulin Pen) 100 Unit/1 Ml Insuln.pen 1 UNIT SUBQ HS Levothyroxine (Levothyroxine) 50 Mcg Tablet 50 MCG PO DAILY Lisinopril (Zestril) 5 Mg Tablet 10 MG PO DAILY Metformin (Glucophage) 1,000 Mg Tablet 1,000 MG PO BID Metoprolol Tartrate (Metoprolol Tartrate) 25 Mg Tablet 25 MG PO BID Warfarin Sodium (Warfarin Sodium) 7.5 Mg Tablet 7.5 MG PO ,,,Fr,Sa,Gill Warfarin Sodium (Warfarin Sodium) 10 Mg Tablet 10 MG PO Mondays Scheduled PRN oxyCODONE (oxyCODONE) 5 Mg Tablet 5 MG PO Q4H PRN PRN For Pain 5-10 mg General Time Seen by MD: 15:05 Chief Complaint Other (epistaxis) Hx Obtained From: Patient Arrived By: Walk-in Sudden in Onset?: Yes Onset Occurred: 1 - 4 hours ago Symptom Duration: Since onset Severity: Current: No pain currently Severity: Maximum: No pain Recent Healthcare: No recent doctor visit Similar Sx Previous: Yes Past Medical History Past Medical History 1. 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 2. Hyperlipidemia on Zocor. 3. Hypertension. 4. Cervical lumbar surgeries in the past. 5. Prostate cancer with implanted seeds at times prior. 6. History of nephrolithiasis. 7. Cardiac disease s/p cardiac catheterization 8. Atrial fibrillation and ventricular tachycardia s/p cardioversion. 9. AL. Past Surgical History Cardiac catheterization carpal tunnel surgery Reports: Back/neck surgery Smoking History Former Smoker Social History Alcohol Use: "Social" Drug Use: Denies drug use Other Social History: Ambulatory Status Independent Review of Systems Full Review of Systems Ears / Nose / Throat: Reports: Nose bleeding Respiratory: Denies: Shortness of breath Cardiovascular: Denies: Chest pain Neurologic: Denies: Lightheaded Complete sys rev & neg: except as marked. Physical Exam Vital Signs Vital Signs Date Time Temp Pulse Resp B/P Pulse Ox O2 Delivery O2 Flow Rate FiO2 02/20/17 17:12 36.7 74 16 130/77 96 Room Air 02/20/17 13:34 36.8 81 15 136/85 99 Room Air Initial VS: Reviewed Head / Eyes: Atraumatic, Normocephalic, PERRL Neck: Supple, Non-tender, Full range of motion Respiratory: Breath sounds normal, Clear to auscultation, No respiratory distress Extremities: Vascular intact, Neuro intact, No swelling, No tenderness Skin: Warm, Dry, No cyanosis Neurologic: Alert, Oriented, Nonfocal General/Constitutional: Awake, Alert, Cooperative ENT: Atraumatic, Mucous membranes moist, Pharynx NL, Ext aud canal NL Prominent blood vessel on the right nasal septum with clot in place. No active bleeding at the time of my exam Cardiovascular: Heart rate NL, No gallop, No murmurs, No rubs Heart Rate / Rhythm: Positive: Irreg irregular rhythm No lower extremity edema Interpretation & Diagnostics Lab Results Interpretation Result Diagram: 02/20/17 1600 Test 02/20/17 16:00 White Blood Count 4.9th/mm3 (3.8-10.1) Red Blood Count 3.44mil/mm3 (4.40-5.80) Hemoglobin 11.0g/dL (13.8-17.2) Hematocrit 34.1% (41.0-50.0) Mean Corpuscular Volume 99.1fL (81-100) Mean Corpuscular Hemoglobin 32.0pg (27.0-35.0) Mean Corpuscular Hemoglobin Concent 32.3% (32.0-37.0) Red Cell Distribution Width 14.1% (12.3-15.4) Platelet Count 132bil/L (150-400) Neutrophils (%) (Auto) 61.6% (40-74) Lymphocytes (%) (Auto) 27.7% (14-46) Monocytes (%) (Auto) 8.1% (4-12) Eosinophils (%) (Auto) 1.4% (0-5) Basophils (%) (Auto) 0.4% (0-3) Prothrombin Time 27.6sec (8.1-12.5) Prothromb Time International Ratio 2.53ratio Hold [place] Top Tube Received (Received) Re-Eval/Medical Decision Med Decision/Clinical Course HBG is baseline, Platelets 132, INR is appropriate. Bleeding stopped. Time of Eval: 16:43 Patient Status: Condition improved Re-Evaluation/Progress Note: Rechecked pt. The bleeding has resolved. Discussed lab results, diagnosis and plan to discharge. Pt understands and agrees with the plan. F/U instructions and RTER warning given. All questions addressed. Counseled Regarding: Diagnosis, Lab results, Need for follow-up, When/why to return to ED Discharge & Departure Primary Impression: Epistaxis Disposition: Home Discharge Condition All VS Reviewed: Yes Condition: Stable Patient Instructions: Nosebleed (ED) Additional Instructions: Thank you for entrusting us with your care today. Your lab results were reassuring. Your INR is 2.5 and your hemoglobin is 11.0 which is baseline for you Follow up with your primary care provider if these continue to recur, you will need a referral to ENT . Return to the emergency department in case of severe bleeding or any new symptoms. Referrals: Albaro Stratton MD (PCP) Scribe Attestation Portions of this note were transcribed by Leora Candelario. I, , personally performed the history, physical exam and medical decision- making;I reviewed and confirmed the accuracy of the information in the transcribed note. Signed by Mario Catalan. 02/20/17 17:59 copies to: Gato Munguia MD, Gary R DO Feb 20, 2017 15:06 Leora Candelario Feb 20, 2017 15:25
[2017-02-20 16:03] LABS: BASOPHILS % (AUTO) 0.4 % (0-3); EOSINOPHILS % (AUTO) 1.4 % (0-5); MONOCYTES % (AUTO) 8.1 % (4-12); Mean Corpuscular Volume 99.1 fL (81-100); NEUTROPHILS % (AUTO) 61.6 % (40-74); Platelet Count 132 bil/L (150-400)
[2017-02-20 16:25] LABS: INR 2.53 ratio
[2017-02-20 17:12] VITALS: BP 130/77; PULSE 74; RESP 16; O2SAT 96
== END 2017-02-20 17:13 | disposition home or self-care (01) ==
LOC: SED 13:27
DX: R04.0 Epistaxis (principal); E11.40 Type 2 diabetes mellitus with diabetic neuropathy, unspecified; I10 Essential (primary) hypertension; I25.2 Old myocardial infarction; Z95.0 Presence of cardiac pacemaker; E78.5 Hyperlipidemia, unspecified; Z79.01 Long term (current) use of anticoagulants; Z79.82 Long term (current) use of aspirin; Z79.84 Long term (current) use of oral hypoglycemic drugs; Z79.4 Long term (current) use of insulin; Z87.891 Personal history of nicotine dependence